=== PATIENT | female | born 1940 | race Caucasian/White ===

== ENCOUNTER 2019-02-24 18:21 | Inpatient (IN) | payer OTHER ==
[2019-02-24] MEDS ORDERED: SODIUM CHLORIDE 0.9% 100 ML 100 ML IV ONE (19:26)
[2019-02-24] MEDS ORDERED: LEVOFLOXACIN 25 MG/ML SOL IV ONE (19:26)
[2019-02-24] MEDS: LEVOFLOXACIN 25 MG/ML 500 MG in SODIUM CHLORIDE 0.9% 100 ML 100 ML IV SCH (19:38)
[2019-02-24] MEDS: DEXTROSE/SALINE 0.45%/KCL10MEQ 1,000 ML/1,000 ML SOL IV SCH (19:53)
[2019-02-24] MEDS: ESCITALOPRAM 10 MG TAB PO SCH (20:46)
[2019-02-24] MEDS ORDERED: LEVOTHYROXINE SODIUM 50 MCG TAB PO SCH (21:00)
[2019-02-24] MEDS ORDERED: PRAMIPEXOLE 0.125 MG PO SCH (21:00)
[2019-02-24] MEDS: ACETAMINOPHEN 500 MG 500 MG TAB PO PRN (21:17)
[2019-02-25] MEDS: ACETAMINOPHEN 500 MG 500 MG TAB PO PRN ×3 (02:49→15:05)
[2019-02-25] MEDS: DEXTROSE/SALINE 0.45%/KCL10MEQ 1,000 ML/1,000 ML SOL IV SCH (05:54)
[2019-02-25] MEDS: LEVOTHYROXINE SODIUM 50 MCG TAB PO SCH (06:00)
[2019-02-25 07:40] LABS: HEMATOCRIT 42 % (35-47); HEMOGLOBIN 13.4 gm/dl (12.0-15.5); MEAN CORPUSCULAR HEMOGLOBIN 27.6 pg (27.0-32.0); MEAN CORPUSCULAR HGB CONC 32.2 gm/dl (32.0-36.0); MEAN CORPUSCULAR VOLUME 86 fL (81-99)
[2019-02-25 07:43] LABS: CALCIUM 7.8 mg/dl (8.5-10.1); CARBON DIOXIDE 26.9 mEq/L (21-32); CREATININE 1.39 mg/dl (0.60-1.00); POTASSIUM 3.3 mMol/L (3.5-5.1)
[2019-02-25 08:05] LABS: BAND NEUTROPHILS % (MANUAL) 7 %; EOSINOPHILS % (MANUAL) 0 % (0-9); LYMPHOCYTES % (MANUAL) 11 % (10-50); MONOCYTES % (MANUAL) 0 % (0-12); MYELOCYTES%(MANUAL) 1; PLATELET MORPHOLOGY COMMENT OCC LG FORMS
[2019-02-25 08:06] LABS: NORMAL RBCS NORMAL RBCS
[2019-02-25 08:07] LABS: BASOPHILS % (MANUAL) 0 % (0-3); NEUTROPHILS % (MANUAL) 81 % (37-80)
[2019-02-25] MEDS ORDERED: VANCOMYCIN HCL 125 MG CAP PO SCH (09:00)
[2019-02-25] MEDS: VANCOMYCIN HCL 125 MG CAP PO SCH ×2 (09:41→20:49)
[2019-02-25] MEDS ORDERED: OMEPRAZOLE MAGNESIUM 20 MG PO SCH (14:30)
[2019-02-25] MEDS: PANTOPRAZOLE SODIUM 40 MG ECT PO SCH (15:05)
[2019-02-25] MEDS: DEXTROSE/SALINE 0.45/KCL 20MEQ 1,000 ML/1,000 ML SOL IV SCH (15:08)
[2019-02-25] MEDS: OXYCODONE HYDROCHLORIDE 5 MG TAB PO PRN (16:26)
[2019-02-25] MEDS ORDERED: LEVOFLOXACIN 25 MG/ML SOL IV ONE (20:15)
[2019-02-25] MEDS ORDERED: SODIUM CHLORIDE 0.9% 100 ML 100 ML IV ONE (20:15)
[2019-02-25] MEDS: DIPHENHYDRAMINE 25 MG CAP PO PRN (20:16)
[2019-02-25] MEDS: LEVOFLOXACIN 25 MG/ML 500 MG in SODIUM CHLORIDE 0.9% 100 ML 100 ML IV SCH (20:42)
[2019-02-25] MEDS: ESCITALOPRAM 10 MG TAB PO SCH (20:48)
[2019-02-25] MEDS: PRAMIPEXOLE DIHYDROCHLORIDE 0.125 MG PO SCH (20:50)
[2019-02-25] MEDS: SENNOSIDES A AND B 8.6 MG TAB PO SCH (20:50)
[2019-02-25] MEDS: LACTOBACILLUS ACIDOPHILUS 1 CAP CAP PO SCH (21:07)
[2019-02-26] MEDS: DEXTROSE/SALINE 0.45/KCL 20MEQ 1,000 ML/1,000 ML SOL IV SCH ×2 (02:29→11:08)
[2019-02-26] MEDS: OXYCODONE HYDROCHLORIDE 5 MG TAB PO PRN ×2 (02:35→08:23)
[2019-02-26] MEDS: LEVOTHYROXINE SODIUM 50 MCG TAB PO SCH (06:02)
[2019-02-26 07:29] LABS: HEMATOCRIT 39 % (35-47); HEMOGLOBIN 12.8 gm/dl (12.0-15.5); MEAN CORPUSCULAR HEMOGLOBIN 28.2 pg (27.0-32.0); MEAN CORPUSCULAR HGB CONC 32.3 gm/dl (32.0-36.0); MEAN CORPUSCULAR VOLUME 87 fL (81-99)
[2019-02-26 07:31] LABS: CALCIUM 7.9 mg/dl (8.5-10.1); CREATININE 1.09 mg/dl (0.60-1.00); POTASSIUM 3.7 mMol/L (3.5-5.1)
[2019-02-26] MEDS: VANCOMYCIN HCL 125 MG CAP PO SCH ×2 (08:24→20:39)
[2019-02-26] MEDS: SENNOSIDES A AND B 8.6 MG TAB PO SCH ×2 (08:25→20:41)
[2019-02-26 08:28] LABS: BAND NEUTROPHILS % (MANUAL) 1 %; BASOPHILS % (MANUAL) 0 % (0-3); EOSINOPHILS % (MANUAL) 1 % (0-9); LYMPHOCYTES % (MANUAL) 9 % (10-50); MONOCYTES % (MANUAL) 7 % (0-12); NEUTROPHILS % (MANUAL) 82 % (37-80); NORMAL RBCS PRESENT
[2019-02-26] MEDS: LACTOBACILLUS ACIDOPHILUS 1 CAP CAP PO SCH ×2 (11:08→20:40)
[2019-02-26] MEDS: PANTOPRAZOLE SODIUM 40 MG ECT PO SCH (14:51)
[2019-02-26] MEDS: DIPHENHYDRAMINE 25 MG CAP PO PRN (19:10)
[2019-02-26] MEDS ORDERED: SODIUM CHLORIDE 0.9% 100 ML 100 ML IV ONE (19:33)
[2019-02-26] MEDS ORDERED: LEVOFLOXACIN 25 MG/ML SOL IV ONE (19:33)
[2019-02-26] MEDS: LEVOFLOXACIN 25 MG/ML 500 MG in SODIUM CHLORIDE 0.9% 100 ML 100 ML IV SCH (19:39)
[2019-02-26] MEDS: ESCITALOPRAM 10 MG TAB PO SCH (20:40)
[2019-02-26] MEDS: PRAMIPEXOLE DIHYDROCHLORIDE 0.125 MG PO SCH (20:41)
[2019-02-27] MEDS: LEVOTHYROXINE SODIUM 50 MCG TAB PO SCH (06:25)
[2019-02-27 07:42] LABS: HEMATOCRIT 39 % (35-47); HEMOGLOBIN 12.8 gm/dl (12.0-15.5); MEAN CORPUSCULAR HEMOGLOBIN 28.1 pg (27.0-32.0); MEAN CORPUSCULAR HGB CONC 32.7 gm/dl (32.0-36.0); MEAN CORPUSCULAR VOLUME 86 fL (81-99)
[2019-02-27 07:45] LABS: CALCIUM 8.1 mg/dl (8.5-10.1); CARBON DIOXIDE 24.1 mEq/L (21-32); CREATININE 1.03 mg/dl (0.60-1.00); POTASSIUM 3.7 mMol/L (3.5-5.1)
[2019-02-27 08:18] VITALS: BP 133/72; PULSE 74; RESP 18; O2SAT 94
[2019-02-27 08:34] LABS: BAND NEUTROPHILS % (MANUAL) 3 %; BASOPHILS % (MANUAL) 0 % (0-3); EOSINOPHILS % (MANUAL) 3 % (0-9); LYMPHOCYTES % (MANUAL) 13 % (10-50); MONOCYTES % (MANUAL) 11 % (0-12); NEUTROPHILS % (MANUAL) 70 % (37-80)
[2019-02-27 08:35] LABS: NORMAL RBCS NORMAL RBCS
[2019-02-27] MEDS: LACTOBACILLUS ACIDOPHILUS 1 CAP CAP PO SCH (08:37)
[2019-02-27] MEDS: VANCOMYCIN HCL 125 MG CAP PO SCH (08:37)
[2019-02-27] MEDS: SENNOSIDES A AND B 8.6 MG TAB PO SCH (08:38)
[2019-02-27 14:01] VITALS: TEMP 98
[2019-02-27] MEDS: PANTOPRAZOLE SODIUM 40 MG ECT PO SCH (15:04)
== END 2019-02-27 15:30 | disposition home or self-care (01) | DRG 690 ==
LOC: ACUTE CARE 18:21
PROVIDERS: ADMIT Family Medicine; ATTEND Family Medicine
DX: N10 Acute pyelonephritis (principal); N28.9 Disorder of kidney and ureter, unspecified; E03.9 Hypothyroidism, unspecified; R10.32 Left lower quadrant pain; M54.5 Low back pain; B96.20 Unspecified Escherichia coli [E. coli] as the cause of diseases classified elsewhere; Z16.39 Resistance to other specified antimicrobial drug
CPT/HCPCS: 36415; 80048; 85007; 85027; 87040; 87077; 87186; 87205; 99231; 99238; J1956; A9270-GY